=== PATIENT | female | born 1975 | race Caucasian/White ===

== ENCOUNTER 2016-05-25 19:52 | Emergency (ER) | payer BC ==
[2016-05-25 19:35] LABS: BASOPHILS 0.2 %; BASOPHILS ABSOLUTE 0.02 10/3/uL (0.0-0.16); EOSINOPHILS 2.7 %; EOSINOPHILS ABSOLUTE 0.28 10/3/uL (0.0-0.53); ER CBC TAT 0 Hrs 03 Mins; HEMATOCRIT 40.1 % (36.0-48.0); HEMOGLOBIN 13.6 g/dL (12.0-16.0); IMMATURE GRANULOCYTES 0.1 %; IMMATURE GRANULOCYTES ABSOLUTE 0.01 10/3/uL (0.0-0.11); LYMPHOCYTES ABSOLUTE 2.69 10/3/uL (0.67-4.30); MEAN CORPUS HGB CONC 33.9 g/dL (32.0-36.0); MEAN CORPUSCULAR HEMOGLOB 27.3 pg (26.0-34.0); MEAN CORPUSCULAR VOLUME 80.4 fL (80-100); MEAN PLATELET VOLUME 10.1 fL (9.2-13.0); MONOCYTES 9.4 %; MONOCYTES ABSOLUTE 0.97 10/3/uL (0.21-1.20); NEUTROPHILS 61.6 %; NEUTROPHILS ABSOLUTE 6.37 10/3/uL (2.02-8.40); PLATELET COUNT 299 10/3/uL (150-400); RBC DISTRIBUTION WIDTH 14.5 % (12.0-16.0); RED CELL COUNT 4.99 10/6/uL (4.0-5.6); WHITE BLOOD CELLS 10.3 10/3/uL (4.5-10.5)
[2016-05-25 19:36] LABS: MANUAL DIFF NO %
[2016-05-25 19:49] LABS: INTERNATIONAL NORMAL RATI 1.1 UNITS (-); PARTIAL THROMBO TIME 26.3 SEC (22.5-37.2); PROTIME (NOT ORD) 13.6 SEC (12.0-14.5)
[2016-05-25 21:12] LABS: BUN (BLOOD UREA NITROGEN) 7 MG/DL (6-23); CALCIUM, SERUM 8.5 MG/DL (8.5-10.4); CHEST PAIN PROFILE TAT 0 Hrs 21 Mins; CHLORIDE, SERUM 110 MMOL/L (96-112); CO2 (CARBON DIOXIDE) 23 MMOL/L (24-34); CREATININE 0.59 MG/DL (0.55-1.02); GFR AFRICAN AMERICAN 135 ML/MIN (>=60); GFR NON AFRICAN AMERICAN 116 ML/MIN (>=60); GLUCOSE, SERUM 101 MG/DL (60-99); POTASSIUM, SERUM 3.6 MMOL/L (3.5-5.3); SODIUM, SERUM 145 MMOL/L (135-148); TROPONIN I <0.02 NG/ML (<0.05)
[2016-12-09] MEDS ORDERED: PROAIR HFA INH (10:14)
[2016-12-09] MEDS ORDERED: PRIN20 PO (10:14)
[2016-12-09] MEDS ORDERED: DYAZIDE1 CAP PO (10:14)
[2016-12-09] MEDS ORDERED: ADVAIR INH (10:15)
[2016-12-09] MEDS ORDERED: ALEVE220 MG PO (10:16)
[2016-12-09] MEDS ORDERED: ACET500CAP PO (10:16)
[2016-12-09] MEDS ORDERED: CLARIT10 PO (10:17)
[2016-12-09] MEDS ORDERED: TUMSROLL PO (10:17)
[2016-12-09] MEDS ORDERED: VITAMIN D PO (10:18)
[2016-12-09] MEDS ORDERED: VITAMIN B-121000 MC1 SL (10:19)
== END 2016-05-25 21:40 | disposition home or self-care (01) ==
LOC: ER 19:52
PROVIDERS: Nurse Practitioner
DX: J45.909 Unspecified asthma, uncomplicated (principal); Z79.899 Other long term (current) drug therapy
CPT/HCPCS: 71010; 80048; 83735; 83880; 84484; 85025; 85610; 85730; 93005; 94640; 96374; 99285; J2930